=== PATIENT | female | born 1990 | race African-American/Black ===

== ENCOUNTER 2024-11-22 11:48 | Emergency (ER) | payer MEDICARE, MEDICAID, SELFPAY ==
[2024-11-22 11:50] VITALS: BMI 26.5
[2024-11-22 12:09] VITALS: BP 120/81; PULSE 85; RESP 18; TEMP 37.1; O2SAT 99
--- NOTE | 2024-11-22 12:25 | XR_ITS ---
Examination: CT maxillofacial, with contrast 2-D sagittal and coronal reconstructions. 3-D reconstructions Date and time of exam:November 22, 2024 1726 hrs. Indications: Left-sided facial swelling today CTDI: vol (mGy):41.7 DLP: (mGycm):817 Technique: Multiple axial images maxillofacial region, 3.0 mm slice thickness, post intravenous injection 50 cc Isovue 370. 2-D sagittal coronal reconstructions. 3-D reconstructions Low dose protocols were performed. One or more of the following dose reduction techniques were used; automated exposure control, adjustment of the mA and/or KV according to patient size, use of iterative reconstruction technique. Findings: Extensive soft tissue infectious mass on the left side external to the maxilla with fat density in the center of the infection No fluid-filled drainable abscess Multiple maxillary left-sided dental caries, likely accounting for the soft tissue infection No facial fracture No antonio osteomyelitis Impression: Multiple maxillary and mandibular dental caries The left-sided maxillary dental caries likely account for the soft tissue infection left base without fluid-filled abscess at this time
[2024-11-22 12:43] LABS: Lactate (Lactic Acid) 1.6 mMol/L (0.4-2.0)
[2024-11-22 12:48] LABS: Basophils % (Auto) 1 % (0-2.5); Eosinophils % (Auto) 0 % (0-10); Hematocrit 36.4 % (36.0-46.0); Hemoglobin 12.1 g/dL (12.0-16.0); Immature Granulocytes % (Auto) 0 % (0-0); Immature Granulocytes Auto 0.02 Thou/mm3 (0.00-0.00); Lymphocytes # (Auto) 1.6 Thou/mm3 (1.0-4.8); Lymphocytes % (Auto) 18 % (10-50); Mean Corpuscular HGB Conc 33.2 g/dl (31.0-37.0); Mean Corpuscular Hemoglobin 27.4 pg (25.0-35.0); Mean Corpuscular Volume 82 fL (80-100); Monocytes # (Auto) 0.8 Thou/mm3 (0.0-0.8); Monocytes % (Auto) 9 % (0-12); Neutrophils # (Auto) 6.3 Thou/mm3 (1.8-7.7); Neutrophils % (Auto) 72 % (37-80); Nucleated Red Blood Cell % 0 /100 WBC (0); Platelet Count 308 Thou/mm3 (140-440); RDW Standard Deviation 42.3 fL (36.4-46.3); Red Blood Count 4.42 Miln/mm3 (4.00-5.20); White Blood Count 8.7 Thou/mm3 (3.6-11.0)
[2024-11-22 12:58] LABS: HCG,Qualitative Serum Negative
[2024-11-22 13:12] LABS: Alanine Aminotransferase 21 U/L (10-49); Albumin, Serum 4.4 gm/dL (3.5-5.0); Albumin/Globulin Ratio 1.5 (1.2-2.2); Alkaline Phosphatase 121 U/L (46-116); Anion Gap 8 (7-16); Aspartate Amino Transferase 14 U/L (0-34); BUN/Creatinine Ratio 7 Ratio (12-20); Bilirubin,Total 0.2 mg/dL (0.3-1.2); Blood Urea Nitrogen 5 mg/dL (9-23); C-Reactive Protein 8.7 mg/dL (0.0-0.9); Calcium 9.7 mg/dL (8.3-10.6); Calcium (Corrected) 9.7 mg/dL (8.5-10.1); Carbon Dioxide 26.7 mMol/L (20.0-31.0); Chloride 102 mMol/L (98-107); Creatinine (Component) 0.7 mg/dL (0.6-1.3); Estimated Creatinine Clearance 102.7 mL/min (>60); Globulin 2.9 gm/dL (2.3-3.5); Glucose 76 mg/dL (74-106); Osmolality,Calculated 270 (275-295); Procalcitonin 0.05 ng/ml (0.0-0.49); Sodium 137 mMol/L (136-145); Total Protein 7.3 gm/dL (5.7-8.2); eGFR > 60 See Note
--- NOTE | 2024-11-22 13:35 | PD.EDRME ---
Rapid Medical Screening Exam RME Arrival date/time: 11/22/24 11:48 34-year-old female presents emergency department with complaints of left-sided facial swelling patient is here with caregiver reports patient been on antibiotics for 2 weeks but still has swelling and pain Chief Complaint: Dental/Oral/Throat Time Seen by Provider: 11/22/24 11:54 Vital signs: Vital Signs Temperature 98.8 F 11/22/24 12:09 Pulse Rate 85 11/22/24 12:09 Respiratory Rate 18 11/22/24 12:09 Blood Pressure 120/81 11/22/24 12:09 Pulse Oximetry (%) 99 11/22/24 12:09 Oxygen Delivery Method Room Air 11/22/24 12:09
[2024-11-22] MEDS: CLINDAMYCIN 900MG IVPB 900 MG in PRE-MIXED 1 BAG 50 MG IV (20:17)
--- NOTE | 2024-11-22 20:17 | EDNOTE_ITS ---
ED Dental RME/HPI General Chief complaint: Dental/Oral/Throat Stated complaint: DENTAL PAIN AND SWELLING Time Seen by Provider: 11/22/24 11:54 Source: patient Arrival date/time: 11/22/24 11:48 Mode of arrival: ambulatory Limitations: no limitations RME / HPI RME / HPI Narrative: 11/22/24 11:48 34-year-old female presents emergency department with complaints of left-sided facial swelling patient is here with caregiver reports patient been on antibiotics for 2 weeks but still has swelling and pain. Dr. Yeager?s Main ED Evaluation: 34-year-old female accompanied by caregiver presents with a two-week history of an oral/dental infection. She was evaluated by Dr. Cameron, a dentist in [place], two weeks ago and diagnosed with a dental abscess. She was prescribed antibiotics, possibly clindamycin (TID) and amoxicillin, for approximately two weeks but reports no significant improvement. A follow-up appointment for tooth extraction is scheduled for February. She has no history of hypertension, diabetes, COPD, or other medical conditions. Related Data Allergies Allergy/AdvReac Type Severity Reaction Status Date / Time No Known Allergies Allergy Verified 11/22/24 11:49 Review of Systems Review of Systems Systems Reviewed: All systems reviewed, normal except as documented Past Medical History Past Medical History CARDIAC: Negative Cardiac Disorders RESPIRATORY: Negative Asthma GENITOURINARY: Negative Renal Disease ENDOCRINE: Negative Diabetes Mellitus Type 2 HEMATOLOGIC: Negative Sickle Cell Disease Social History SMOKING STATUS: Never smoker ED Exam Narrative Physical exam: GENERAL: In general the patient is awake, interactive, in an emergency department rwolf. She appears slightly uncomfortable. Not drooling. HEAD/EYES/EARS/NOSE/THROAT: normo-cephalic, atraumatic, mucus membranes are moist. No cervical tenderness palpation midline. Supple neck. Left-sided cheek swelling involving the entire maxilla, which is firm and tender but without overlying skin tenderness. She has poor dentition and limited mouth opening. The affected tooth is possibly the third from the rear, likely tooth #14. CARDIOVASCULAR: regular rate and regular rhythm, no murmurs, heart sounds are not distant, strong pulses in all four extremities that are equal and symmetric bilateral upper and lower extremities, normal capillary refill. CHEST/PULMONARY: normal chest rise and fall, good air movement, clear to aus cultation bilaterally, normal inspiratory to expiratory ratios without evidence of respiratory distress. ABDOMEN: soft, not tender, no masses appreciated BACK: normal range of motion without pain. NEUROLOGICAL: cranio-facial features are symmetric, moves all four extremities equally without obvious limitations or weakness. EXTREMITY: no tenderness to palpation over the long bones or large joints of the bilateral upper and lower extremities, no joint swelling, no joint erythema, no signs of trauma, no unilateral leg swelling and no peripheral edema. SKIN: warm, dry, well-perfused, no jaundice, no rash, no telangiectasias or petechia. PSYCH: calm, cooperative, no evidence of psychosis or agitation General Limitations: Present no limitations Course Quality Measures none Orders Category Date Time Status CT Screening NOW Care 11/22/24 12:25 Active Insert IV NOW Care 11/22/24 12:[address] facial bones w con Stat Exams 11/22/24 12:25 Completed Blood Culture (Lab) Stat Lab 11/22/24 12:30 Received CBC Stat Lab 11/22/24 12:36 Completed CRP [C-Reactive Protein] Stat Lab 11/22/24 12:36 Completed Comprehensive Metabolic Panel Stat Lab 11/22/24 12:36 Completed HCG,Qualitative Serum Stat Lab 11/22/24 12:36 Completed Lactate (Lactic Acid) Stat Lab 11/22/24 12:36 Completed Procalcitonin Stat Lab 11/22/24 12:36 Completed Clindamycin 900Mg Ivpb [Cleocin/D5w Ivpb] 900 mg Med 11/22/24 12:25 Discontinued Pre-Mixed [Pre-mixed Bag] 1 bag IV X1 Clindamycin 900Mg Ivpb [Cleocin/D5w Ivpb] 900 mg Med 11/22/24 19:56 Discontinued Pre-Mixed [Pre-mixed Bag] 1 bag IV X1 Dexamethasone Inj [Decadron Inj] Med 11/23/24 02:00 Discontinued 10 mg IV X1 ONE Morphine Inj Med 11/23/24 02:00 Discontinued 2 mg IVP X1 ONE Morphine Inj Med 11/22/24 20:22 Discontinued 4 mg IVP X1 ONE Vital Signs Vital signs: Vital Signs Temperature 98.8 F 11/22/24 12:09 Pulse Rate 85 11/22/24 12:09 Respiratory Rate 18 11/22/24 12:09 Blood Pressure 120/81 11/22/24 12:09 Pulse Oximetry (%) 99 11/22/24 12:09 Oxygen Delivery Method Room Air 11/22/24 12:09 Dental / Oral MDM Narrative MDM Narrative:: 0315 Case d/w Dr. Navarro who states patient is not a good candidate for surgery and needs medical management. She states she will get in touch with dentistry and call us back. [id number] Dr. Fay at [facility] accepts for ER to ER transfer. Scribe Attestation: I, Manuel Alanis, am scribing for and in the presence of Dr. Yeager. Provider Notation: Although this document has been carefully reviewed, there may still be some phonetic and other typographical errors. These errors are purely grammatical due to imperfections in the software program and should not be construed in any way to compromise the substance of the patient's medical care during this visit. Patient data External records reviewed:: None Clinical information provided by:: patient and family Social determinants that could affect healthcare access:: none Patient has the following chronic illnesses:: see PMH How is presenting disease/condition affected by chronic disease/condition?: no chronic disease Evaluation data The following diagnostics were reviewed and interpreted by me:: lab results and radiology exam(s) Lab and/or radiology exams considered but not ordered:: na Interpretation Summary: I personally reviewed the radiology data and agree with the radiologist's interpretation. Examination: CT maxillofacial, with contrast Date and time of exam:November 22, 2024 1726 hrs. Indications: Left-sided facial swelling today Findings: Extensive soft tissue infectious mass on the left side external to the maxilla with fat density in the center of the infection No fluid-filled drainable abscess Multiple maxillary left-sided dental caries, likely accounting for the soft tissue infection No facial fracture No antonio osteomyelitis Impression: Multiple maxillary and mandibular dental caries The left-sided maxillary dental caries likely account for the soft tissue infection left base without fluid-filled abscess at this time Dictated By: Papa Wells MD Medications / Prescriptions Medications or Prescriptions considered but not ordered:: na Medication administrations:: Medication Administration History Discontinued Medications Dexamethasone Sodium Phosphate (Dexamethasone Sod Phos Inj 10 Mg/Ml Vial) 10 mg IV X1 ONE Stop: 11/23/24 02:01 Last Admin: 11/23/24 02:52 Dose: 10 mg Documented By: CVL Clindamycin Phosphate 900 mg/ (IV Miscellaneous Supplies) 50 mls @ 50 mls/hr IV X1 ONE Stop: 11/22/24 13:24 Last Admin: 11/22/24 19:58 Dose: Not Given Documented By: CVL Non-Admin Reason: Other, see note Comments: not given from day shift Clindamycin Phosphate 900 mg/ (IV Miscellaneous Supplies) 50 mls @ 50 mls/hr IV X1 ONE Stop: 11/22/24 20:55 Last Infusion: 11/22/24 22:24 Dose: Infused Documented By: Admin: 11/22/24 20:17 Dose: 50 mls/hr Documented By: CVL Morphine Sulfate (Morphine Sulf Inj 10 Mg/Ml Vial) 4 mg IVP X1 ONE Stop: 11/22/24 20:23 Last Admin: 11/22/24 20:32 Dose: 4 mg Documented By: CVL Morphine Sulfate (Morphine Sulf Inj 10 Mg/Ml Vial) 2 mg IVP X1 ONE Stop: 11/23/24 02:01 Last Admin: 11/23/24 02:53 Dose: 2 mg Documented By: CVL as above Consultations Consultation(s) initiated? (list below): Yes Consultation #1 (Physician, Specialty, Details): see narrative Diagnosis Dental Differential Diagnosis: gingival abscess, dental caries, toothache and dental abscess Most likely diagnosis given after review of the tests above:: see clinical impression below Admission Indicated Admission indicated?: not indicated Explain why admission is indicated or not indicated:: Transfer to higher level of care Admission Request Was there a request for admission?: No Disposition Plan Disposition Plan: Transfer Critical Care Time Critical Care Time Critical Care Time: Yes Total Critical Care Time (min.): 45 Attestation: The high probability of sudden, clinically significant deterioration in the patient?s condition required the highest level of my preparedness to intervene urgently. ? The services I provided to this patient were to treat and/or prevent clinically significant deterioration. Services included the following: chart data review, reviewing nursing notes and/or old charts, documentation time, databases computer consultant collaboration regarding findings and treatment options, medication orders and management, direct patient care, vital sign assessments and ordering, interpreting and reviewing diagnostic studies and lab tests. ? Aggregate critical care time includes only time during which I was engaged in work directly related to the patient?s care, as described above, whether at bedside or elsewhere in the Emergency Department. It did not include time spent performing other reported procedures or the services of residents, students, nurses or physician assistants. Discharge Plan Prescriptions/Referrals Referrals: Toma Hyde PA-C [Primary Care Provider] - In 1 week Problem List Clinical Impression: Dental abscess Patient/Caregiver Discharge Instructions Print Language: Frisian
[2024-11-22] MEDS: MORPHINE SULF INJ 10 MG/ML VIAL 4 MG IVP (20:32)
[2024-11-23 00:59] VITALS: BP 126/82; PULSE 93; RESP 16; TEMP 37.1; O2SAT 99
[2024-11-23] MEDS: DEXAMETHASONE SOD PHOS INJ 10 MG/ML VIAL IV (02:52)
[2024-11-23] MEDS: MORPHINE SULF INJ 10 MG/ML VIAL 2 MG IVP (02:53)
--- NOTE | 2024-11-23 04:47 | PC.NURSE ---
Bhavana from [facility] transfer center calling with accepting info. Dr. Fay accepts pt as an ed-ed transfer for dentistry. Nurse report number is [phone]
[2024-11-23] MEDS: MORPHINE SULF INJ 10 MG/ML VIAL 4 MG IVP (05:18)
[2024-11-23] MEDS: PIPER/TAZO INJ 3.375 GM in SODIUM CHLORIDE 0.9% (Popper) 50 ML IV (05:19)
[2024-11-23 05:33] VITALS: BP 125/78; PULSE 103; RESP 19; TEMP 36.9; O2SAT 98
--- NOTE | 2024-11-23 06:44 | PC.NURSE ---
REPORT GIVEN TO CONCEPCION LEON FROM [facility].
== END 2024-11-23 06:32 | disposition short-term general hospital (02) ==
PROVIDERS: Nurse Practitioner Primary Care; Emergency Provider Emergency Medicine; PCP Physician Assistant
DX: K04.7 Periapical abscess without sinus (principal)
CPT/HCPCS: 36415; 70487; 80053; 83605; 84145; 84703; 85025; 86140; 87040; 96365; 96375; 96376; 99291; A4649; J1100; J2270; J2543; J7050; Q9967; S0077; J0736